=== PATIENT | male | born 1945 | race Caucasian/White ===

== ENCOUNTER → 2016-11-08 | Outpatient (CLI) | payer MEDICARE | LOC: RAD 08:29 | PROVIDERS: ATTEND Family Medicine | DX: M54.5 Low back pain (principal); C61 Malignant neoplasm of prostate | CPT/HCPCS: 78306; A9503 ==

== ENCOUNTER 2016-11-26 07:30 | Outpatient (RCR) | payer MEDICARE | END 2016-12-06 16:18 | disposition home or self-care (01) | LOC: PT 07:30 | PROVIDERS: ATTEND Family Medicine | DX: M54.5 Low back pain (principal) | CPT/HCPCS: 97035; 97110; 97161; G8981; G8982; G8983 ==

== ENCOUNTER → 2016-12-27 | Outpatient (CLI) | payer MEDICARE | LOC: LAB 15:01 | PROVIDERS: ATTEND Urology | DX: C61 Malignant neoplasm of prostate (principal) | CPT/HCPCS: 36415; 84153 ==

== ENCOUNTER → 2017-02-17 | Outpatient (REF) | payer MEDICARE ==
[~2017-02-17] MED LIST: ASPI-586; AZIT250T81 PO; BUTE15CR; CIPR500S2 PO; METF500T; METH4TAB27 PO; METR500T PO; MTP25TSR; OMEG500C3; SMV10T
== END ==
LOC: LAB 10:00
PROVIDERS: ATTEND Family Medicine
DX: D64.89 Other specified anemias (principal)
CPT/HCPCS: 85014; 85018